=== PATIENT | female | born 1990 ===

== ENCOUNTER → 2018-05-01 21:53 | Outpatient (REF) | payer OTHER, SELFPAY ==
[2018-05-01 23:18] LABS: Add Manual Diff / Slide Review NO; Alanine Aminotransferase 25 IU/L (9-52); Albumin Globulin Ratio 1.9 (1.0-2.8); Alkaline Phosphatase 46 U/L (38-126); Aspartate Aminotransferase 21 IU/L (14-36); BUN Creatinine Ratio 17.5 (6-22); Basophils Absolute Auto 0 /uL (0-100); Basophils Percent Auto 0.5 % (0-2); Bilirubin Total 0.9 mg/dL (0.2-1.3); Blood Urea Nitrogen 14 mg/dL (7-17); Calcium 10.1 mg/dL (8.4-10.2); Carbon Dioxide 28 mmol/L (22-32); Chloride 100 mmol/L (98-107); Eosinophils Absolute Auto 200 /uL (0-450); Eosinophils Percent Auto 2.9 % (2-4); Estimated Glomerular Filt Rate > 60.0 mL/min (>60); Globulin 2.6 g/dL (1.7-4.1); Glucose 87 mg/dL (70-100); HEMOLYSIS < 15 (0-50); Hemoglobin 14.5 g/dL (12.0-16.0); Lymphocytes Absolute Auto 1400 /uL (1100-4500); Lymphocytes Percent Auto 22.9 % (25-40); Mean Corpuscular HGB Conc 34.7 % (30-36); Mean Corpuscular Hemoglobin 31.7 PG (26-34); Mean Corpuscular Volume 91.6 fL (80-100); Monocytes Absolute Auto 700 /uL (0-900); Monocytes Percent Auto 11.2 % (3-14); Neutrophils Absolute Auto 3900 /uL (1500-7000); Neutrophils Percent Auto 62.5 % (50-75); Platelet Count 203 X10^3/uL (150-400); Potassium 4.7 mmol/L (3.4-5.1); Red Blood Cell Count 4.58 X10^6/uL (4.0-5.2); Sodium 139 mmol/L (137-145); Total Protein 7.6 g/dL (6.3-8.2); White Blood Cell Count 6.3 X10^3/uL (4.5-11.0)
== END ==
LOC: LAB 21:53
PROVIDERS: Visit Provider Naturopath
DX: K29.70 Gastritis, unspecified, without bleeding (principal)
CPT/HCPCS: 36415; 80053; 83013; 85025

== ENCOUNTER → 2018-05-02 20:56 | Outpatient (REF) | payer OTHER, SELFPAY | LOC: LAB 20:56 | PROVIDERS: Visit Provider Naturopath | DX: K29.70 Gastritis, unspecified, without bleeding (principal) | CPT/HCPCS: 86677 ==